=== PATIENT | female | born 1970 | race Two or more races ===

== ENCOUNTER 2024-06-18 16:11 | Emergency (ER) | payer MEDICAID ==
[~2024-06-18] VITALS: Ht 152.4 cm; Wt 66.3 kg
[2024-06-18 17:27] LABS: Urine Bacteria None Seen /hpf (None Seen)
[2024-06-18 18:45] LABS: Basophils # (auto) 0.1 10 ^3/uL (0-0.2); Basophils % (auto) 0.8 % (0.0-2.0); Eosinophils # (auto) 0.1 10 ^3/uL (0-0.8); Eosinophils % (auto) 0.8 % (0.0-7.0); Hematocrit 44.1 % (36.0-46.0); Hemoglobin 15.5 g/dL (12.2-16.2); Lymphocytes # (auto) 1.7 10 ^3/uL (0.4-5.4); Lymphocytes % (auto) 19.9 % (10.0-50.0); Mean Corpuscular Hemoglobin 31.9 pg (28.0-32.0); Mean Corpuscular Hgb Conc. 35.2 g/dL (32.0-36.0); Mean Corpuscular Volume 90.8 fL (80.0-100.0); Monocytes # (auto) 0.5 10 ^3/uL (0-1.3); Monocytes % (auto) 5.8 % (0.0-12.0); Neutrophils # (auto) 6.2 10 ^3/uL (1.6-8.6); Neutrophils % (auto) 72.7 % (37.0-80.0); Platelet Count (auto) 218 10^3/uL (140-450); Red Blood Cells 4.86 10^6/uL (4.0-5.20); Red Cell Distribution Width 13.5 % (11.8-14.3); White Blood Cell 8.5 10^3/uL (4.4-10.8)
[2024-06-18 18:51] LABS: Chloride 108 mmol/L (98-107); Potassium 4.1 mmol/L (3.5-5.1); Sodium 142 mmol/L (136-145)
[2024-06-18 18:52] LABS: Anion Gap 7 (5-15); Carbon Dioxide 27 mmol/L (20-31)
[2024-06-18 18:53] LABS: Calcium 10.3 mg/dL (8.7-10.4)
[2024-06-18 18:58] LABS: BUN/Creatinine Ratio 13.9 (10.0-20.0); Blood Urea Nitrogen 10 mg/dL (9-23); Glucose 88 mg/dL (74-106)
[2024-06-18 18:59] LABS: Urine Blood Negative /uL (Negative); Urine Clarity Clear (Clear); Urine Color Light-Yellow (Yellow); Urine Mucus FEW (None Seen); Urine Protein, UAD Negative (Negative); Urine Specific Gravity 1.021 (1.001-1.035); Urine Urobilinogen Normal (Negative); Urine WBC 1 /hpf (0 - 5); Urine pH 5.5 (5.0-9.0)
[2024-06-18 20:08] VITALS: BP 167/93; PULSE 83; RESP 18; TEMP 98.5; O2SAT 97
== END 2024-06-18 20:11 | disposition home or self-care (01) ==
LOC: ER 16:11
DX: B34.9 Viral infection, unspecified (principal); I10 Essential (primary) hypertension; E78.5 Hyperlipidemia, unspecified; Z86.2 Personal history of diseases of the blood and blood-forming organs and certain disorders involving the immune mechanism; Z90.89 Acquired absence of other organs
CPT/HCPCS: 36415; 70450; 80048; 81001; 85025; 93005

== ENCOUNTER 2024-12-02 13:46 | Inpatient (IN) | payer MEDICAID ==
[~2024-12-02] VITALS: Ht 152.4 cm; Wt 72.5 kg
[2024-12-02 14:15] VITALS: PULSE 70; RESP 13; O2SAT 98
--- NOTE | 2024-12-02 14:29 | DVH ---
X-ray left tibia and fibula Technique: AP and lateral views REASON FOR EXAM: fall FINDINGS: Spiral fracture of the distal fibula. Question chip fracture medial malleolus IMPRESSION: 1. Spiral fracture distal fibula. Question chip fracture medial malleolus
--- NOTE | 2024-12-02 14:33 | DVH ---
CLINICAL INDICATION: fall TECHNIQUE: 3 views of the left ankle Comparison: None FINDINGS/IMPRESSION: Mildly displaced oblique fracture of the lateral malleolus. Mild adjacent soft tissue swelling. Small osseous density is noted along the medial malleolus, could represent age indeterminate avulsion fracture, favor chronic.
--- NOTE | 2024-12-02 14:45 | ED.PDOC ---
History of Present Illness HPI Comments 54-year-old female with PMHx Anemia, HTN, HLD presents with a chief complaint of fall x 1 hour ago. Patient states that she had a mechanical fall x 1 hour ago and injured the distal portion of her left tib/fib. Patient is not able to ambulate on the leg and rates her pain a 10/10 at this time. PSHx Tonsillectomy, Right Ankle Repair. Patient denies smoking tobacco or illicit drug use, but does endorse alcohol use. No other symptoms or modifying factors present at this time. 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 all INSTRUCTIONAL TECHNOLOGY COACH Hx Family History Family History: Reviewed,noncontributory to illness, Unknown Social History Smoker: Non-Smoker Alcohol: Rarely Drugs: Denies Drug Use Lives In: Home Constitutional: denies: chills, diaphoresis, fatigue, fever, malaise, sweats, weakness, others EENTM: denies: blurred vision, double vision, ear bleeding, ear discharge, ear drainage, ear pain, ear ringing, eye pain, eye redness, hearing loss, mouth pain, mouth swelling, nasal discharge, nose bleeding, nose congestion, nose pain, photophobia, tearing, throat pain, throat swelling, voice changes, others Respiratory: denies: cough, hemoptysis, orthopnea, SOB at rest, shortness of breath, SOB with excertion, stridor, wheezing, others Cardiovascular: denies: chest pain, dizzy spells, diaphoresis, Dyspnea on exertion, edema, irregular heart beat, left arm pain, lightheadedness, pa lpitations, PND, syncope, others Gastrointestinal: denies: abdomen distended, abdominal pain, blood streaked bowels, constipated, diarrhea, dysphagia, difficulty swallowing, hematemesis, melena, nausea, poor appetite, poor fluid intake, rectal bleeding, rectal pain, vomiting, others Genitourinary: denies: abnormal vagina bleeding, burning, dyspareunia, dysuria, flank pain, frequency, hematuria, incontinence, pain, , vagina discharge, urgency, others Neurological: denies: dizziness, fainting, headache, left sided numbness, left sided weakness, numbness, paresthesia, pre-existing deficit, right sided numbness, right sided weakness, seizure, speech problems, tingling, tremors, weakness, others Musculoskeletal: reports: joint pain, muscle pain; denies: back pain, gout, joint swelling, muscle stiffness, neck pain, others Integumetry: denies: bruises, change in color, change in hair/nails, dryness, laceration, lesions, lumps, rash, wounds, others Allergic/Immunocompromised: denies: Difficulty Healing, Frequent Infections, Hives, Itching, others Hematologic/Lymphatic: denies: anemia, blood clots, easy bleeding, easy bruising, swollen glands, others Endocrine: denies: excessive hunger, excessive sweating, excessive thirst, excessive urination, flushing, intolerance to cold, intolerance to heat, un explained weight gain, unexplained weight loss, others Psychiatric: denies: anxiety, bipolar disorder, depression, hopeless, panic disorder, schizophrenia, sleepless, suicidal, others All Other Systems: Reviewed and Negative Physical Exam General Appearance: No Apparent Distress HEENT: Normal ENT Inspection, Pharynx Normal, TMs Normal Neck: Full Range of Motion, Non-Tender, Normal, Normal Inspection Respiratory: Chest Non-Tender, Lungs Clear, No Accessory Muscle Use, No Respiratory Distress, Normal Breath Sounds Cardiovascular: No Edema, No JVD, No Murmur, No Gallop, Normal Peripheral Pulses, Regular Rate/Rhythm Breast Exam: Deferred Gastrointestinal: No Organomegaly, Non Tender, No Pulsatile Mass, Normal Bowel Sounds, Soft Genitalia: Deferred Pelvic: Deferred Rectal: Deferred Extremities: No calf tenderness, Normal capillary refill, No pedal edema Musculoskeletal : Location: Left Extremity Location: Fibia, Leg, Tibia Apperance: Limited ROM, Tenderness: Moderate Neurologic: Alert, sand tester II-XII nml as Tested, No Motor Deficits, Normal Affect, Normal Mood, No Sensory Deficits Cerebellar Function: Normal Reflexes: Normal Skin: Dry, Normal Color, Warm Lymphatic: No Adenopathy Was a procedure done? Was a procedure done?: No Differential Dx Considerations may include: Fracture, strain, contusion X-Ray, Labs, Meds, VS Vital Signs Date Time Temp Pulse Resp B/P (MAP) Pulse Ox O2 Delivery O2 Flow Rate FiO2 12/02/24 13:59 98.2 82 18 138/84 (102) 98 98.2 Left Tib/Fib X-Ray Impression: Spiral fracture distal fibula. Question chip fracture medial malleolus Left Ankle X-Ray Impression: Mildly displaced oblique fracture of the lateral malleolus. Mild adjacent soft tissue swelling. Small osseous density is noted along the medial malleolus, could represent age indeterminate avulsion fracture, favor chronic. The patient was being placed in a posterior and stirrup splint At this time, the patient was being discharged and will follow up with the primary care doctor The patient will return to the emergency department's condition worsens. The patient was given [place] for the pain The patient understands and agrees with the management The patient was given crutches and gait training Images Reviewed?: Images reviewed and evaluated by me Time of 1ST Reevaluation: 15:12 Reevaluation 1ST: Unchanged Patient Education/Counseling: Diagnosis, Treatment, Prognosis, Need For Follow Up Family Education/Counseling: No Family Present Departure 1 Departure Time of Disposition: 15:05 Impression: Primary Impression: Left fibular fracture Qualified Codes: S82.445A - Nondisplaced spiral fracture of shaft of left fibula, initial encounter for closed fracture Additional Impression: Closed left ankle fracture Qualified Codes: S82.892A - Other fracture of left lower leg, initial encounter for closed fracture Disposition: 01 HOME / SELF CARE / HOMELESS Condition: Fair Discharged With: Self, Friend Critical Care Note Critical Care Time?: No Stability Stability form required: No Heart Score Heart Score: Heart Score Response (Comments) Value History N/A 0 EKG N/A 0 Age N/A 0 Risk Factors N/A 0 Troponin N/A 0 Total 0 I personally scribed for TALON LARA MD ([email or web address]) on 12/02/24 at 14:45. Electronically submitted by Justin Ugarte ([email or web address]). I personally scribed for TALON LARA MD ([email or web address]) on 12/02/24 at 14:47. Electronically submitted by Justin Ugarte ([email or web address]). TALON LARA MD Dec 02, 2024 14:45
[2024-12-02] MEDS ORDERED: HYDR-4902 PO (15:07)
[2024-12-02] MEDS: HYDROcodone-ACET 10/325MG TAB PO ONE (15:18)
[2024-12-02 16:14] LABS: Basophils # (auto) 0.1 10 ^3/uL (0-0.2); Eosinophils # (auto) 0.2 10 ^3/uL (0-0.8); Eosinophils % (auto) 2.2 % (0.0-7.0); Hematocrit 46.5 % (36.0-46.0); Hemoglobin 15.7 g/dL (12.2-16.2); Lymphocytes # (auto) 2.1 10 ^3/uL (0.4-5.4); Lymphocytes % (auto) 25.5 % (10.0-50.0); Mean Corpuscular Hemoglobin 30.9 pg (28.0-32.0); Mean Corpuscular Hgb Conc. 33.7 g/dL (32.0-36.0); Mean Corpuscular Volume 91.6 fL (80.0-100.0); Monocytes # (auto) 0.5 10 ^3/uL (0-1.3); Monocytes % (auto) 5.7 % (0.0-12.0); Neutrophils # (auto) 5.3 10 ^3/uL (1.6-8.6); Neutrophils % (auto) 65.6 % (37.0-80.0); Nucleated Red Blood Cells % 0.1 %; Platelet Count (auto) 217 10^3/uL (140-450); Red Blood Cells 5.08 10^6/uL (4.0-5.20); Red Cell Distribution Width 13.1 % (11.8-14.3); White Blood Cell 8.1 10^3/uL (4.4-10.8)
[2024-12-02 16:21] LABS: Chloride 106 mmol/L (98-107); Potassium 4.1 mmol/L (3.5-5.1); Sodium 143 mmol/L (136-145)
[2024-12-02 16:22] LABS: Anion Gap 9 (5-15); Calcium 10.2 mg/dL (8.7-10.4); Carbon Dioxide 28 mmol/L (20-31)
[2024-12-02 16:27] LABS: BUN/Creatinine Ratio 16.5 (10.0-20.0); Blood Urea Nitrogen 13 mg/dL (9-23); Glucose 100 mg/dL (74-106)
[2024-12-02 16:34] LABS: INR 0.97 (0.9-1.15); Partial Thromboplastin Time 25.8 SEC (24.5-34.5); Prothrombin Time 10.3 sec (9.3-11.8)
[2024-12-02] MEDS ORDERED: MORPHINE SULFATE INJ 2 MG/ml SYRG IV PRN (19:00)
[2024-12-02] MEDS ORDERED: ONDANSETRON HCL 4 MG/2 ML VIAL IV PRN (19:00)
[2024-12-02 19:46] VITALS: PULSE 72; RESP 16; O2SAT 97
[2024-12-02 21:00] VITALS: BP 143/74; PULSE 67; RESP 18; TEMP 98.1; O2SAT 97
--- NOTE | 2024-12-02 21:24 | DVHHP2 ---
History of Present Illness Reason for Visit: Left ankle pain History of Present Illness 54-year-old female presents for evaluation of left ankle pain. Patient reports stepping into a ole on the ground. She reports twisting her left ankle can not bear weight left leg. Denies trauma loss of consciousness. Acute complaints reported. Past Medical History Hypertension, dyslipidemia Past Surgical History Tonsillectomy Family History Noncontributory Smoke: No ALCOHOL: none Drugs: None Lives: with Family Review of Systems Review of Systems Review of systems are currently negative otherwise addressed in HPI. Allergies: Coded Allergies: NO KNOWN ALLERGIES (Unverified , 06/18/24) Medications Current Medications Medications Dose Ordered Sig/Lucille Route Start Time Stop Time Status Last Admin Dose Admin Acetaminophen/ Hydrocodone Bitart 1 tab Q4HP PRN PO 12/02/24 19:00 Ondansetron HCl 4 mg Q4HP PRN IV 12/02/24 19:00 Acetaminophen 650 mg Q6HP PRN PO 12/02/24 19:00 Morphine Sulfate 2 mg Q4HPRN PRN IV 12/02/24 19:00 Exam Vital Signs Vital Signs Date Time Temp Pulse Resp B/P (MAP) Pulse Ox O2 Delivery O2 Flow Rate FiO2 12/02/24 20:01 98.1 72 16 130/74 (92) 97 98.1 12/02/24 19:46 Room Air* 0 21 Exam Gen: 54-year-old female in mild distress. Skin: Warm, dry, normal color and texture, no rash. HEENT: Normocephalic atraumatic, mucous membranes moist and pink. Neck: Cervical and supraclavicular nodes normal without enlargement, trachea is midline, thyroid gland is normal without masses. Pulmonary: Clear to auscultation and percussion bilaterally. Cardiac: Regular rate and rhythm. No murmur Abdomen: Soft, nontender, nondistended, bowel sounds present all 4 quadrants, no guarding, no rigidity, no organomegaly. Extremities: No cyanosis, clubbing, left lower extremity on a splint with positive distal pulses Neuro: Cranial nerves II through XII grossly intact, normal affect and speech, no focal motor deficits. Labs/Xrays CLINICAL INDICATION: fall TECHNIQUE: 3 views of the left ankle Comparison: None FINDINGS/IMPRESSION: Mildly displaced oblique fracture of the lateral malleolus. Mild adjacent soft tissue swelling. Small osseous density is noted along the medial malleolus, could represent age indeterminate avulsion fracture, favor chronic. RING PHYSICIAN: TALON LARA MD PROCEDURE(s): LTBFB - L TIB FIB XRAY REASON: fall ORDER NUMBER(s): [id number], ACCESSION NUMBER(s): [id number] X-ray left tibia and fibula Technique: AP and lateral views REASON FOR EXAM: fall FINDINGS: Spiral fracture of the distal fibula. Question chip fracture medial malleolus IMPRESSION: 1. Spiral fracture distal fibula. Question chip fracture medial malleolus Labs Test 12/02/24 16:08 Range/Units White Blood Count 8.1 4.4-10.8 10^3/uL Red Blood Count 5.08 4.0-5.20 10^6/uL Hemoglobin 15.7 12.2-16.2 g/dL Hematocrit 46.5 H 36.0-46.0 % Mean Corpuscular Volume 91.6 80.0-100.0 fL Mean Corpuscular Hemoglobin 30.9 28.0-32.0 pg Mean Corpuscular Hemoglobin Concent 33.7 32.0-36.0 g/dL Red Cell Distribution Width 13.1 11.8-14.3 % Platelet Count 217 140-450 10^3/uL Mean Platelet Volume 9.7 6.9-10.8 fL Neutrophils (%) (Auto) 65.6 37.0-80.0 % Lymphocytes (%) (Auto) 25.5 10.0-50.0 % Monocytes (%) (Auto) 5.7 0.0-12.0 % Eosinophils (%) (Auto) 2.2 0.0-7.0 % Basophils (%) (Auto) 1.0 0.0-2.0 % Neutrophils # (Auto) 5.3 1.6-8.6 10 ^3/uL Lymphocytes # (Auto) 2.1 0.4-5.4 10 ^3/uL Monocytes # (Auto) 0.5 0-1.3 10 ^3/uL Eosinophils # (Auto) 0.2 0-0.8 10 ^3/uL Basophils # (Auto) 0.1 0-0.2 10 ^3/uL Nucleated Red Blood Cells 0.1 % Prothrombin Time 10.3 9.3-11.8 sec Prothrombin Time INR 0.97 0.9-1.15 Activated Partial Thromboplast Time 25.8 24.5-34.5 SEC Sodium Level 143 136-145 mmol/L Potassium Level 4.1 3.5-5.1 mmol/L Chloride Level 106 98-107 mmol/L Carbon Dioxide Level 28 20-31 mmol/L Anion Gap 9 5-15 Blood Urea Nitrogen 13 9-23 mg/dL Creatinine 0.79 0.550-1.02 mg/dL Glomerular Filtration Rate Calc 88 >90 mL/min BUN/Creatinine Ratio 16.5 10.0-20.0 Serum Glucose 100 74-106 mg/dL Calcium Level 10.2 8.7-10.4 mg/dL Assessment/Plan Assessment/Plan Assessment Closed left ankle fracture Left fibular fracture Hypertension Plan Admit the patient to [facility] to the hospitalist Orthopedic consultation Pain management NPO after midnight Continue treatment per orders. Plan discussed with: Patient My Orders Orders - DOLORES JONES Procedure Category Date Status Time *Consult Dr. Goldsmith CONS 12/02/24 Transmitted Elliott 18:59 Npo After Midnight ORDERS 12/02/24 Transmitted Admit ADMIT 12/02/24 Transmitted 18:59 Hydrocodone-Acet PHA 12/02/24 In Process 5/325mg Tab ([place] 19:00 Ondansetron Hcl PHA 12/02/24 In Process (Zofran) 19:00 Condition: Stable ISABELL 12/02/24 In Process 18:59 Acetaminophen Tablet PHA 12/02/24 In Process (Tylenol Tablet) 19:00 Bedrest With Bathroom ISABELL 12/02/24 In Process Privileg 18:59 Morphine Sulfate PHA 12/02/24 In Process Injection 19:00 Basic Metabolic Panel LAB 12/03/24 Verified 04:00 Date of Service: Dec 02, 2024 Billing Provider: DOLORES JONES Common Visit Codes: [id number] INP/OBS CARE (MOD) DOLORES JONES Dec 02, 2024 21:24
[2024-12-02 21:25] VITALS: O2SAT 97
[2024-12-02 21:44] VITALS: BP 143/74; PULSE 67; RESP 16; TEMP 98.1; O2SAT 97
[2024-12-02] MEDS: HYDROcodone-ACET 5/325MG TAB PO PRN (22:56)
[2024-12-03 05:00] VITALS: BP 110/78; PULSE 67; RESP 18; TEMP 98; O2SAT 99
[2024-12-03 05:47] LABS: Chloride 106 mmol/L (98-107); Potassium 4.1 mmol/L (3.5-5.1); Sodium 142 mmol/L (136-145)
[2024-12-03 05:48] LABS: Anion Gap 8 (5-15); Carbon Dioxide 28 mmol/L (20-31)
[2024-12-03 05:49] LABS: Calcium 9.3 mg/dL (8.7-10.4)
[2024-12-03 05:53] LABS: BUN/Creatinine Ratio 18.4 (10.0-20.0); Blood Urea Nitrogen 14 mg/dL (9-23); Glucose 88 mg/dL (74-106)
[2024-12-03 09:00] VITALS: BP 129/77; PULSE 69; RESP 18; TEMP 98.1; O2SAT 97
--- NOTE | 2024-12-03 09:56 | DVH ---
PROCEDURE: Left ankle radiographs. INDICATION: surgical evaluation/Mortise View TECHNIQUE: Frontal, lateral and oblique views of the left ankle were obtained. COMPARISON: None FINDINGS: There is interval casting of distal fibular fracture. Medial ankle clear space measures 4 mm similar to prior study. There is a heel spur. IMPRESSION: 1. Interval casting of distal fibular fracture. No significant change in alignment.
--- NOTE | 2024-12-03 11:10 | DVHINCON2 ---
Consult Note Consult Consult Note Chief complaint: Left ankle pain and instability to ambulate following ground level fall. History of present illness: This is a 54-year-old female admitted after a ground level fall proximally 1 day ago, resulting in left ankle injury. Emergency department imaging revealed a Lanier B/C fibular fracture spiral with medial clear space widening and concern for syndesmotic and/or deltoid ligament injury patient is normally highly a ctive, ambulates independently, and desires promptly returned to full functioning. She denies tobacco use cardiac history pulmonary or other histories today. She denies any other joint pain, loss of consciousness vision changes. She also denies calf pain swelling of cast numbness tingling lower extremity or other concern. Review of system: Constitutional call denies fever, chills, weight loss. Cardiovascular: Denies chest pain, palpitation. Respiratory: Denies shortness of breath, cough. GI: Denies nausea, vomiting, diarrhea. : Denies dysuria, incontinence. Neuro: Denies numbness tingling or weakness lower extremity. MSK left ankle pain, no other joint pain reported. Skin: No rash wounds elsewhere. Guille psych: Denies depression or anxiety. Physical exam: General: Alert, oriented x3, no distress. Left lower extremity ankle/foot: Inspection: Moderate swelling, lateral and medial ecchymosis, no open wounds. Palpitation: TTP at lateral male and medial ankle/deltoid region. Range of motion: Severely limited due to pain; unable to actively dorsiflex/plantar flex. Stability: External rotation tenderness painful over Neurovascular: Sensation intact in all distributions superficial/deep peroneal, tibial, sural. Motor 5/5 where testable limited by pain. DP/PT pulses 2+, IRRIGATION TEACHER less than 2 sec Compartments: Soft, no sign of ACS Imaging: X-ray spiral fracture Lanier B/C distal fibula, mild medial clear space widening. Possible syndesmotic injury Assessment/plan: Left ankle bimalleolar equivalent fracture (Lanier B/C (close with possible sy ndesmotic and deltoid ligament disruption suspected: Unstable pattern; operative fixation required About exam x-ray case discussed with on-call surgeon Dr. Manzo who agrees with the above recommends surgical fixation Plan of open reduction internal fixation with possible syndesmotic fixation discussed in detail with patient, nonoperative treatment plan also discussed in detail with patient pros and cons of both discussed with patient. Patient at this time would like surgical fixation. Recommendation to medicine team: NPO at midnight Obtain consent Preop clearance and optimization for surgery in next 24 hour for this. Strict nonweightbearing status for lower left extremity until further notice. Patient highly motivated bed agreeable to surgical treatment as discussed above E/ M code: 70515 high complexity. Plan discussed with: Patient, Other (bedside nurse) Visit Coding Surgery Date of Service if different f: Dec 03, 2024 Billing Provider: STACY ALMENDAREZ Surgery Visit Codes: 61136 - INP CONSULT <55 MIN STACY ALMENDAREZ Dec 03, 2024 11:10
[2024-12-03 13:00] VITALS: BP 126/73; PULSE 73; RESP 18; TEMP 97.9; O2SAT 98
--- NOTE | 2024-12-03 13:04 | DVHPN2 ---
Progress Note Date Seen: Dec 03, 2024 Medical Necessity Reason Pt with a Central, PICC or Fol: No Subjective Patient reports: No new complaints Review of Systems: HEENT:Normal, CVS:Normal, RESPIRATORY:Normal, GI:Normal, :Normal, MSK:Normal, NEURO:Normal Objective vital signs Vital Sign Date Time Temp Pulse Resp B/P (MAP) Pulse Ox O2 Delivery O2 Flow Rate FiO2 12/03/24 09:00 98.1 69 18 129/77 (94) 97 98.1 12/03/24 08:05 Room Air* 0 21 medications Current Medications Medications Dose Ordered Sig/Lucille Route Start Time Stop Time Status Last Admin Dose Admin Acetaminophen/ Hydrocodone Bitart 1 tab Q4HP PRN PO 12/02/24 19:00 12/02/24 22:56 1 TAB Ondansetron HCl 4 mg Q4HP PRN IV 12/02/24 19:00 Acetaminophen 650 mg Q6HP PRN PO 12/02/24 19:00 Morphine Sulfate 2 mg Q4HPRN PRN IV 12/02/24 19:00 Examination: GENERAL:Normal, HEENT:Normal, NECK:Normal, LUNGS:Normal, CVS:Normal, ABDOMEN:Normal, MSK:Normal, MSK:Abnormal (left ankle cast), SKIN:Normal, NEURO:Normal, :Normal laboratory and microbiology Laboratory Tests 12/03/24 04:43 12/02/24 16:08 Test 12/03/24 04:43 Range/Units Serum Glucose 88 74-106 mg/dL Problem List/Assessment/Plan Problem List/Assessment/Plan #1 left ankle fracture: surg in am #2 ?htn #3 homeless advance care planning- full code- time spent 19 mins Plan discussed with: Patient My Orders My Orders Orders - DOLORES MOORE MD Procedure Category Date Status Time * Timber Packer CONS 12/03/24 Transmitted Consult Urinalysis LAB 12/03/24 Uncollected 13:02 Complete Blood Count LAB 12/04/24 Verified 06:00 Comprehensive LAB 12/04/24 Verified Metabolic Panel 06:00 Date of Service: Dec 03, 2024 Billing Provider: DOLORES MOORE MD Common Visit Codes: [id number] INP/OBS CARE(HIGH) Secondary Visit Codes: [id number]-[id number] CARE PLAN 30 MINUTES DOLORES MOORE MD Dec 03, 2024 13:04
--- NOTE | 2024-12-03 15:28 | DVH ---
EXAM: XY CHEST XRAY 1 VIEW TECHNIQUE: Single frontal chest radiograph CLINICAL HISTORY: surgical evaluation COMPARISON: None Findings/Impression: Frontal chest radiograph demonstrates no acute osseous or superficial soft tissue abnormalities. The trachea is midline. The cardiac silhouette and mediastinum are within normal limits. No pneumothorax, pleural effusions, or consolidations.
[2024-12-03 17:00] VITALS: BP 124/74; PULSE 77; RESP 16; TEMP 98.2; O2SAT 97
[2024-12-03 21:00] VITALS: BP 116/65; PULSE 78; RESP 18; TEMP 98.3; O2SAT 96
[2024-12-03 23:00] LABS: Urine Bacteria None Seen /hpf (None Seen)
[2024-12-03 23:10] LABS: Urine Amorphous Crystal FEW /hpf (None Seen); Urine Blood Negative /uL (Negative); Urine Clarity Turbid (Clear); Urine Color Light-Yellow (Yellow); Urine Protein, UAD Negative (Negative); Urine Specific Gravity 1.019 (1.001-1.035); Urine Squamous Epithelial Cell FEW /hpf (<5); Urine Urobilinogen Normal (Negative); Urine WBC 1 /HPF (0-5)
[2024-12-04] VITALS (8 sets, daily range): BP systolic 109–133; BP diastolic 65–84; PULSE 61–105; RESP 16–20; TEMP 97.6–98.1; O2SAT 95–98
[2024-12-04 06:53] LABS: Basophils # (auto) 0 10 ^3/uL (0-0.2); Eosinophils # (auto) 0.2 10 ^3/uL (0-0.8); Eosinophils % (auto) 4.3 % (0.0-7.0); Hematocrit 42.1 % (36.0-46.0); Hemoglobin 14.2 g/dL (12.2-16.2); Lymphocytes # (auto) 1.9 10 ^3/uL (0.4-5.4); Lymphocytes % (auto) 40.9 % (10.0-50.0); Mean Corpuscular Hemoglobin 30.8 pg (28.0-32.0); Mean Corpuscular Hgb Conc. 33.7 g/dL (32.0-36.0); Mean Corpuscular Volume 91.4 fL (80.0-100.0); Monocytes # (auto) 0.3 10 ^3/uL (0-1.3); Neutrophils # (auto) 2.2 10 ^3/uL (1.6-8.6); Neutrophils % (auto) 46.8 % (37.0-80.0); Nucleated Red Blood Cells % 0.1 %; Platelet Count (auto) 176 10^3/uL (140-450); Red Cell Distribution Width 13.5 % (11.8-14.3); White Blood Cell 4.6 10^3/uL (4.4-10.8)
[2024-12-04 07:11] LABS: Alanine Aminotransferase 14 U/L (7-40); Albumin 4.1 g/dL (3.2-4.8); Alkaline Phosphatase 73 U/L (46-116); Anion Gap 7 (5-15); Aspartate Aminotransferase 15 U/L (13-40); BUN/Creatinine Ratio 18.6 (10.0-20.0); Bilirubin, Total 0.7 mg/dL (0.2-1.0); Blood Urea Nitrogen 13 mg/dL (9-23); Calcium 9.5 mg/dL (8.7-10.4); Carbon Dioxide 28 mmol/L (20-31); Chloride 106 mmol/L (98-107); Glucose 103 mg/dL (74-106); Potassium 4.2 mmol/L (3.5-5.1); Sodium 141 mmol/L (136-145); Total Protein 6.6 g/dL (5.7-8.2)
[2024-12-04] MEDS ORDERED: PROPOFOL 10 MG/ML 20 ML IV ONE (10:36)
[2024-12-04] MEDS ORDERED: LIDOCAINE 2% (LOCAL ANESTH.) PF 5ml SDV ONE (10:36)
[2024-12-04] MEDS ORDERED: LIDOCAINE 1% INJ PF 5ML AMP ONE (10:36)
[2024-12-04] MEDS ORDERED: GLYCOPYRROLATE 0.2 MG/ML 1ML VIAL ONE (10:36)
[2024-12-04] MEDS ORDERED: DexAMETHasone SOD PHOS 10MG/1ML VIAL INJ ONE (10:36)
[2024-12-04] MEDS ORDERED: ONDANSETRON HCL 4 MG/2 ML VIAL ONE (10:36)
[2024-12-04] MEDS ORDERED: KETOROLAC TROMETH 30 MG/ML 1ML VIAL ONE (10:36)
[2024-12-04] MEDS ORDERED: fentaNYL CITRATE 100 MCG/2 ML VL ONE (10:37)
[2024-12-04] MEDS ORDERED: KETAMINE 50mg/ML 1ml syringe ONE (10:37)
[2024-12-04] MEDS: GABAPENTIN 300 MG CAP PO ONE (11:30)
[2024-12-04] MEDS: CELECOXIB 100 MG CAP PO ONE (11:30)
[2024-12-04] MEDS: ACETAMINOPHEN IV 1000 MG/100ML (10MG/ML) IV ONE (11:30)
[2024-12-04] MEDS: ceFAZolin 1GM/50ML 100 ML IV ONE (11:45)
--- NOTE | 2024-12-04 11:48 | DVHPN2 ---
Progress Note Date Seen: Dec 04, 2024 Medical Necessity Reason Pt with a Central, PICC or Fol: No Subjective Patient reports: No new complaints Review of Systems: HEENT:Normal, CVS:Normal, RESPIRATORY:Normal, GI:Normal, :Normal, MSK:Normal, NEURO:Normal Objective vital signs Vital Sign Date Time Temp Pulse Resp B/P (MAP) Pulse Ox O2 Delivery O2 Flow Rate FiO2 12/04/24 09:00 97.6 67 17 133/73 (93) 98 97.6 12/04/24 08:00 Room Air* 0 21 Total Intake and Output 12/03/24 12/03/24 12/04/24 15:00 23:00 07:00 Intake Total 250 ml 0 ml Balance 250 ml 0 ml medications Current Medications Medications Dose Ordered Sig/Lucille Route Start Time Stop Time Status Last Admin Dose Admin Acetaminophen/ Hydrocodone Bitart 1 tab Q4HP PRN PO 12/02/24 19:00 12/04/24 00:20 1 TAB Ondansetron HCl 4 mg Q4HP PRN IV 12/02/24 19:00 Acetaminophen 650 mg Q6HP PRN PO 12/02/24 19:00 Morphine Sulfate 2 mg Q4HPRN PRN IV 12/02/24 19:00 Examination: GENERAL:Normal, HEENT:Normal, NECK:Normal, LUNGS:Normal, CVS:Normal, ABDOMEN:Normal, MSK:Normal, MSK:Abnormal (left ankle splint), SKIN:Normal, NEURO:Normal, :Normal laboratory and microbiology Laboratory Tests 12/04/24 06:07 Test 12/04/24 06:07 Range/Units Serum Glucose 103 74-106 mg/dL Problem List/Assessment/Plan Problem List/Assessment/Plan #1 left ankle fracture: surg today #2 ?htn #3 homeless advance care planning- full code- time spent 19 mins Plan discussed with: Other (rn) My Orders My Orders Orders - DOLORES MOORE MD Procedure Category Date Status Time * Warp Knit Operator CONS 12/03/24 Transmitted Consult Urinalysis LAB 12/03/24 Uncollected 13:02 Date of Service: Dec 04, 2024 Billing Provider: DOLORES MOORE MD Common Visit Codes: [id number] INP/OBS CARE(HIGH) DOLORES MOORE MD Dec 04, 2024 11:48
--- NOTE | 2024-12-04 11:49 | DVHHP2 ---
History Allergies: Coded Allergies: NO KNOWN ALLERGIES (Unverified , 06/18/24) Chief Complaint: left ankle pain , inabilty to bear weight Present Illness(Onset/Duration mechanical fall 12/03/23, no AMS before or after fall , no hitting head non contirbutory Past Surgical History tonsillectomy, unclear surgery right mid foot without compilcations Medications none declared Physical Exam Skin intact EENT NCAT Chest and Lungs CTA B Heart RRR neg MRG Abdomen NBS Extremities Right ankle , skin intact, moderate swelling, ROM / stabilty not assessed due to fracture Vital Signs Vital Signs Date Time Temp Pulse Resp B/P (MAP) Pulse Ox O2 Delivery O2 Flow Rate FiO2 12/04/24 09:00 97.6 67 17 133/73 (93) 98 97.6 12/04/24 08:00 Room Air* 0 21 Impressions/Description LEFT distal fibula fracture, rule out syndesmotic ligament disruption Plan NPO pre-op clearance surgery, open reduction internal fixation of right ankle lateral malleolus fracture JOSE SALDIVAR MD Dec 04, 2024 11:49
[2024-12-04] MEDS ORDERED: ePHEDrine SULFATE 50 MG/ML AMP ONE (12:07)
[2024-12-04] MEDS ORDERED: HYDROmorphone HCL 2 MG/ML VL/or syr IV PRN (13:15)
[2024-12-04] MEDS ORDERED: FLUMAZENIL 0.1 MG/ML INJ 10ML MDV IV PRN (13:15)
[2024-12-04] MEDS ORDERED: ONDANSETRON HCL 4 MG/2 ML VIAL IV PRN (13:15)
[2024-12-04] MEDS ORDERED: hydrALAZINE HCL 20 MG/ML VL IV PRN (13:15)
[2024-12-04] MEDS ORDERED: fentaNYL CITRATE 100 MCG/2 ML VL IV PRN (13:15)
[2024-12-04] MEDS ORDERED: oxyCODONE HCL 5MG TAB PO PRN (13:15)
[2024-12-04] MEDS ORDERED: ePHEDrine SULFATE 50 MG/ML AMP IV PRN (13:15)
[2024-12-04] MEDS ORDERED: NALOXONE HCL 0.4 MG/ML VIAL IV PRN (13:15)
--- NOTE | 2024-12-04 13:15 | DVHOP2 ---
Operative Report - 2 Report Details Date: 12/04/24 Preop Diagnosis: lateral malleolus fracture, deltoid ligament tear, rule out syndesmosis injury Postop Diagnosis: same , with no instability of syn Surgeon: Guille Saldivar MD Emotional Support Teacher: Anderson Anesthesiologist: Dr Reynolds Anesthesia: General Drains: none Implant: lateral fibular plate Consent: The patient was informed of the risks and benefits of the procedure. These include but are not limited to complications of anesthesia, postoperative infection, incomplete relief of symptoms, recurrence of symptoms, damage to blood vessels, nerves and tendons, deep venous thrombosis, pulmonary embolism and possible need for repeat surgery in the future. Complications: none Estimated Blood Loss: 25cc Fluids: 750 cc crystalloid Findings: spiral fracture lateral malleolus intact syndesmosis Indications for Surgery: lateral malleolus fracture with medial ankle pain a questionable widening of medial mortise Name of Procedure Performed Open reduction internal fixation of left ankle lateral malleolus fracture Procedure Details Procedure Details: Patient brought in the operating room given Ancef 2 g IV piggyback preoperatively transferred to fracture table seatbelt nonsterile tourniquet left thigh sterile prep and drape left lower extremity time-out performed comprehension left side correct side ORIF of lateral malleolus and possible disc syndesmosis fixation after review of operative consent his history and physical and my initials on left leg all long-term operating room agreeing the left side correct side ORIF of lateral malleolus fracture and possible placement of syndesmosis fixation correct procedure exsanguination with Esmarch tourniquet elevated to 250 mm Hg total tourniquet time 30 minutes longitudinal incision made over the lateral malleolus from tip of lateral malleolus proximally for a length of 10 cm sharp dissection through skin down to subcutaneous tissue blunt dissection down to deep fascia deep fascia divided subperiosteal elevation of bone exposing spiral oblique fracture lateral malleolus irrigation to remove hematoma crab claw clamp to reduce fracture of compression screw placed across fracture over drilling proximal aspect to create compression the placement of a lateral fibular plate with three cortical screws three distal cancellous screws C-arm fluoro taken AP and lateral and mortise views showing good overall alignment of fracture and placement of hardware traction then placed on the lateral fibula with crab claw under fluoro guidance showing no evidence of instability of syndesmosis no widening of mortise therefore no need for syndesmotic fixation irrigation performed excellent hemostasis noted after tourniquet let down closure subcutaneous 2-0 Vicryl skin amanda fluffs ABD Coban walker boot two nonweightbearing four weeks. Specimen: none Condition Stable Disposition Home GUILLE SALDIVAR MD Dec 04, 2024 13:15
[2024-12-04] MEDS: D5W/SOD CHL 0.45%/KCL 20MEQ 1,000 ML IV SCH (14:36)
--- NOTE | 2024-12-04 16:29 | ECG ---
[facility] Test Date: 2024-12-03 Test Time: 16:04:16 Pat Name: LAUREN ROMEO Department: Room: 0286 B Gender: F Registered Radiologic Technologist: PRASHANT : 1970 Requested By: STACY ALMENDAREZ Order Number: [id number] Reading MD: Hemanth Marley Measurements Intervals [place] Rate: 71 P: 55 DE: 147 QRS: 55 QRSD: 97 T: 26 QT: 375 QTc: 408 Interpretive Statements Sinus rhythm Probable anterior infarct, age indeterminate Electronically Signed On 12-06-2024 12:58:17 PDT by Hemanth Marley Please click the below link to view image of tracing.
--- NOTE | 2024-12-04 16:39 | DVH ---
EXAM: XY L ANKLE 3 VIEW, XY C ARM FLUOROSCOPY UP TO 60MIN HISTORY: ORIF LEFT ANKLE TECHNIQUE: Intraoperative radiographs of the left ankle were obtained. FLUOROSCOPY TIME: 8.9 seconds FLUOROSCOPY IMAGES: 6 TOTAL DOSE: 0.13 mGy COMPARISON: XY L ANKLE 3 VIEW on DOS: 12/03/24 FINDINGS/IMPRESSION: Refer to intraoperative report for further evaluation.
[2024-12-04] MEDS: ACETAMINOPHEN 325 MG TAB PO PRN (22:07)
[2024-12-05 01:00] VITALS: BP 125/71; PULSE 101; RESP 18; TEMP 97.5; O2SAT 96
[2024-12-05 05:00] VITALS: BP 126/83; PULSE 69; RESP 19; TEMP 96.1; O2SAT 94
[2024-12-05 06:16] LABS: Basophils # (auto) 0 10 ^3/uL (0-0.2); Basophils % (auto) 0.3 % (0.0-2.0); Eosinophils # (auto) 0 10 ^3/uL (0-0.8); Hematocrit 39.4 % (36.0-46.0); Hemoglobin 13.6 g/dL (12.2-16.2); Lymphocytes # (auto) 0.8 10 ^3/uL (0.4-5.4); Lymphocytes % (auto) 6.1 % (10.0-50.0); Mean Corpuscular Hemoglobin 31.7 pg (28.0-32.0); Mean Corpuscular Hgb Conc. 34.4 g/dL (32.0-36.0); Mean Corpuscular Volume 92.2 fL (80.0-100.0); Monocytes # (auto) 0.5 10 ^3/uL (0-1.3); Monocytes % (auto) 3.8 % (0.0-12.0); Neutrophils # (auto) 11.4 10 ^3/uL (1.6-8.6); Neutrophils % (auto) 89.8 % (37.0-80.0); Platelet Count (auto) 181 10^3/uL (140-450); Red Blood Cells 4.27 10^6/uL (4.0-5.20); Red Cell Distribution Width 13.6 % (11.8-14.3); White Blood Cell 12.7 10^3/uL (4.4-10.8)
[2024-12-05] MEDS ORDERED: HYDR-4902 PO (08:02)
[2024-12-05] MEDS ORDERED: CEPH500C PO (08:03)
[2024-12-05 08:31] VITALS: BP 128/70; PULSE 85; RESP 19; TEMP 98.4; O2SAT 97
--- NOTE | 2024-12-05 11:49 | DVHPN2 ---
Progress Note Date Seen: Dec 05, 2024 Medical Necessity Reason Pt with a Central, PICC or Fol: No Subjective Patient reports: No new complaints Review of Systems: HEENT:Normal, CVS:Normal, RESPIRATORY:Normal, GI:Normal, :Normal, MSK:Normal, NEURO:Normal Objective vital signs Vital Sign Date Time Temp Pulse Resp B/P (MAP) Pulse Ox O2 Delivery O2 Flow Rate FiO2 12/05/24 10:31 98.4 12/05/24 08:31 85 19 128/70 (89) 97 12/05/24 08:10 Room Air* 0 21 Total Intake and Output 12/04/24 12/04/24 12/05/24 15:00 23:00 07:00 Intake Total 200 ml 1000 ml 2200 ml Balance 200 ml 1000 ml 2200 ml medications Current Medications Medications Dose Ordered Sig/Lucille Route Start Time Stop Time Status Last Admin Dose Admin Acetaminophen/ Hydrocodone Bitart 1 tab Q4HP PRN PO 12/02/24 19:00 12/04/24 00:20 1 TAB Ondansetron HCl 4 mg Q4HP PRN IV 12/02/24 19:00 Acetaminophen 650 mg Q6HP PRN PO 12/02/24 19:00 12/05/24 09:31 650 MG Morphine Sulfate 2 mg Q4HPRN PRN IV 12/02/24 19:00 Potassium Chloride/Dextrose/ Sod Cl 1,000 ml @ 150 mls/hr Q6H40M IV 12/04/24 13:30 12/05/24 09:31 150 MLS/HR Examination: GENERAL:Normal, HEENT:Normal, NECK:Normal, LUNGS:Normal, CVS:Normal, ABDOMEN:Normal, MSK:Normal, MSK:Abnormal (left ankle boot), SKIN:Normal, NEURO:Normal, :Normal laboratory and microbiology Laboratory Tests 12/05/24 04:24 12/04/24 06:07 Test 12/04/24 06:07 Range/Units Serum Glucose 103 74-106 mg/dL Problem List/Assessment/Plan Problem List/Assessment/Plan #1 left ankle fracture: s/p surgery #2 ?htn #3 homeless advance care planning- full code- time spent 19 mins Plan discussed with: Patient My Orders My Orders Orders - DOLORES MOORE MD Procedure Category Date Status Time C Arm Fluoroscopy Up XY 12/04/24 Resulted To 60min 16:11 L Ankle 3 View XY 12/04/24 Resulted 16:12 Pt Request For Service PT 12/05/24 Verified 11:48 Date of Service: Dec 05, 2024 Billing Provider: DOLORES MOORE MD Common Visit Codes: [id number] INP/OBS CARE(HIGH) DOLORES MOORE MD Dec 05, 2024 11:49
[2024-12-05 13:28] VITALS: BP 133/89; PULSE 78; RESP 21; TEMP 98.6; O2SAT 96
[2024-12-05 17:00] VITALS: BP 120/62; PULSE 75; RESP 19; TEMP 98; O2SAT 95
[2024-12-05 21:00] VITALS: BP 116/68; PULSE 81; RESP 18; TEMP 97.9; O2SAT 95
[2024-12-06] VITALS (7 sets, daily range): BP systolic 10–146; BP diastolic 52–83; PULSE 55–75; RESP 17–21; TEMP 97.6–98.4; O2SAT 95–100
--- NOTE | 2024-12-06 11:51 | DVHDS2 ---
Discharge Summary Date of Admission Dec 02, 2024 at 18:59 Date of Discharge: Dec 06, 2024 Labs/Diagnostic Data: Laboratory Results Test 12/05/24 04:24 12/04/24 06:07 12/03/24 23:00 12/02/24 16:08 White Blood Count 12.7 10^3/uL (4.4-10.8) Red Blood Count 4.27 10^6/uL (4.0-5.20) Hemoglobin 13.6 g/dL (12.2-16.2) Hematocrit 39.4 % (36.0-46.0) Mean Corpuscular Volume 92.2 fL (80.0-100.0) Mean Corpuscular Hemoglobin 31.7 pg (28.0-32.0) Mean Corpuscular Hemoglobin Concent 34.4 g/dL (32.0-36.0) Red Cell Distribution Width 13.6 % (11.8-14.3) Platelet Count 181 10^3/uL (140-450) Mean Platelet Volume 11.0 fL (6.9-10.8) Neutrophils (%) (Auto) 89.8 % (37.0-80.0) Lymphocytes (%) (Auto) 6.1 % (10.0-50.0) Monocytes (%) (Auto) 3.8 % (0.0-12.0) Eosinophils (%) (Auto) 0.0 % (0.0-7.0) Basophils (%) (Auto) 0.3 % (0.0-2.0) Neutrophils # (Auto) 11.4 10 ^3/uL (1.6-8.6) Lymphocytes # (Auto) 0.8 10 ^3/uL (0.4-5.4) Monocytes # (Auto) 0.5 10 ^3/uL (0-1.3) Eosinophils # (Auto) 0 10 ^3/uL (0-0.8) Basophils # (Auto) 0 10 ^3/uL (0-0.2) Nucleated Red Blood Cells 0.0 % Sodium Level 141 mmol/L (136-145) Potassium Level 4.2 mmol/L (3.5-5.1) Chloride Level 106 mmol/L (98-107) Carbon Dioxide Level 28 mmol/L (20-31) Anion Gap 7 (5-15) Blood Urea Nitrogen 13 mg/dL (9-23) Creatinine 0.70 mg/dL (0.550-1.02) Glomerular Filtration Rate Calc 102 mL/min (>90) BUN/Creatinine Ratio 18.6 (10.0-20.0) Serum Glucose 103 mg/dL (74-106) Calcium Level 9.5 mg/dL (8.7-10.4) Total Bilirubin 0.7 mg/dL (0.2-1.0) Aspartate Amino Transferase (AST) 15 U/L (13-40) Alanine Aminotransferase (ALT) 14 U/L (7-40) Alkaline Phosphatase 73 U/L (46-116) Total Protein 6.6 g/dL (5.7-8.2) Albumin 4.1 g/dL (3.2-4.8) Urine Color Light-yellow (Yellow) Urine Clarity Turbid (Clear) Urine pH 7.0 (5.0-9.0) Urine Specific [place] 1.019 (1.001-1.035) Urine Protein Negative (Negative) Urine Ketones Negative (Negative) Urine Blood Negative /uL (Negative) Urine Nitrite Negative (Negative) Urine Bilirubin Negative (Negative) Urine Urobilinogen Normal mg/dL (Negative) Urine Leukocyte Esterase Negative /uL (Negative) Urine RBC <1 /hpf (0 - 4) Urine Microscopic WBC 1 /HPF (0-5) Urine Squamous Epithelial Cells Few /hpf (<5) Urine Calcium Oxalate Crystals Few (None Seen) Urine Amorphous Crystals Few /hpf (None Seen) Urine Bacteria None seen /hpf (None Seen) Urine Glucose Normal mg/dL (Normal) Prothrombin Time 10.3 sec (9.3-11.8) Prothrombin Time INR 0.97 (0.9-1.15) Activated Partial Thromboplast Time 25.8 SEC (24.5-34.5) Other Laboratory Tests 12/05/24 04:24 12/04/24 06:07 Brief Hx & Hospital Course: see dictated note Condition at Discharge: Good Final Diagnosis/Problems List left ankle fracture Discharge Disposition: Home Discharge Instruct/Medications Diet: Cardiac 2g Na,low cholest Activity: No Restrictions, As Tolerated Activity comment: non weight bearing left leg Follow Up/Referral: schedule appt with dr Gallagher in 2 wks Medications: resume home meds script to pharmacy Discharge Statement: "Patient was advised to return to the ER or call 911 if any headaches, dizziness, shortness of breath, chest pain, abdominal pain, bleeding, fevers, or worsening of medical condition. Patient was counseled about treatment plan, medications, possible side effects, patientverbalized understanding. All questions were answered to the best of my ability. This discharge took greater then 30 minutes in planning, reviewing documentation, counseling the patient, and discussing with other team members." ASSESSMENT ASSESSMENT Assessment left ankle fracture Date of Service: Dec 06, 2024 Billing Provider: DOLORES MOORE MD Common Visit Codes: 54327-GEH/OBS DISCH DAY >30min DOLORES MOORE MD Dec 06, 2024 11:51
--- NOTE | 2024-12-06 12:17 | DVHDS ---
DATE OF DISCHARGE: 12/06/2024 HISTORY OF PRESENT ILLNESS: The patient is a 54-year-old lady who came with history of pain in the left ankle after trauma. The patient has history of hypertension, hyperlipidemia. HOSPITAL COURSE: The patient had x-ray of the left ankle that showed a spiral fracture of the distal fibula with a chip fracture of the medial malleolus. The patient was seen in orthopedic consult by Dr. Tompkins. The patient underwent surgery on the left ankle on 12/04/2024. The patient will now be discharged home to be nonweightbearing as well as to be on Sharon p.r.n. for pain. She will follow up with Orthopedics in the next two weeks. FINAL DIAGNOSES: Therefore, * Left ankle fracture, status post surgery. * History of hypertension. * Hyperlipidemia. Time spent in discharge planning and review of plan with the patient, nursing and family welfare social work professor was 39 minutes. MD SHA Estrada/ERIKA TID: [id number] RECEIPT: [id number]
== END 2024-12-06 18:44 | disposition home or self-care (01) | DRG 313 ==
LOC: ER 13:46 → OVERFLOW 18:59 → WEST WING 21:26
PROVIDERS: ADMIT Internal Medicine; ATTEND Internal Medicine
PROC: 0QSK04Z Reposition Left Fibula with Internal Fixation Device, Open Approach (ICD-10-PCS; principal; 2024-12-04 11:45)
DX: S82.62XA Displaced fracture of lateral malleolus of left fibula, initial encounter for closed fracture (principal); E78.5 Hyperlipidemia, unspecified; I10 Essential (primary) hypertension; S82.442A Displaced spiral fracture of shaft of left fibula, initial encounter for closed fracture; S82.842A Displaced bimalleolar fracture of left lower leg, initial encounter for closed fracture; S93.432A Sprain of tibiofibular ligament of left ankle, initial encounter; S93.422A Sprain of deltoid ligament of left ankle, initial encounter; Z59.00 Homelessness unspecified; W18.30XA Fall on same level, unspecified, initial encounter; Y93.89 Activity, other specified; Y92.89 Other specified places as the place of occurrence of the external cause; Y99.8 Other external cause status
CPT/HCPCS: 36415; 71045; 73590; 73600; 73610; 76000; 80048; 80053; 81001; 85025; 85610; 85730; 86850; 86900; 86901; 93005; 97110; 97116; 97163; 97530; G0378; J0131; J1100; J1885; J2003; J2405; J2704

== ENCOUNTER 2024-12-12 14:16 | Emergency (ER) | payer MEDICAID ==
[~2024-12-12] VITALS: Ht 152.4 cm; Wt 66.0 kg
[~2024-12-12 14:16] MED LIST: CEPH500C PO; HYDR-4902 PO
--- NOTE | 2024-12-12 15:11 | ED.PDOC ---
Musculoskeletal HPI Comments 54-year-old female presents for medication refill S/P fracture. Chief Complaint: Lower Extremity Time Seen by MD: 14:48 Primary Care Provider: NONE Reviewed Notes: Nurses Notes, Medications, Allergies Allergies: Coded Allergies: NO KNOWN ALLERGIES (Unverified , 06/18/24) Home Meds Active Scripts Hydrocodone-Acetaminophen (Hydrocodone Bitartrate/AC 5-325 mg) 1 Tab Tab, 1 TAB PO TID PRN, #24 TAB Prov:GUILLERMO MASTERSP 12/13/24 Cephalexin Monohydrate (Cephalexin) 500 Mg Cap, 1 CAP PO QID for 5 Days, #20 CAP Prov:STACY ALMENDAREZ PAC 12/05/24 Hydrocodone-Acetaminophen (Hydrocodone Bitartrate/AC 5-325 mg) 1 Tab Tab, 1 TAB PO Q8HP PRN for 5 Days, #30 TAB Prov:STACY ALMENDAREZ PAC 12/05/24 Information Source: Patient Mode of Arrival: Ambulatory Past Medical History PAST MEDICAL HISTORY: Anemia, High Lipids, HTN Surgical History: Tonsillectomy 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: Denies all FLIGHT TEST SUPERVISOR Hx Family History Family History: Reviewed,noncontributory to illness, Unknown Social History Smoker: Non-Smoker Alcohol: Rarely Drugs: Denies Drug Use Lives In: Home All Other Systems: Reviewed and Negative (Per HPI) Physical Exam General Appearance: No Apparent Distress, Normal HEENT: Normal ENT Inspection, Pharynx Normal, TMs Normal Neck: Full Range of Motion, Non-Tender, Normal, Normal Inspection Respiratory: Chest Non-Tender, Lungs Clear, No Accessory Muscle Use, No Respiratory Distress, Normal Breath Sounds Cardiovascular: No Murmur, No Gallop, Regular Rate/Rhythm Breast Exam: Deferred Gastrointestinal: No Organomegaly, Non Tender, No Pulsatile Mass, Normal Bowel Sounds, Soft Genitalia: Deferred Pelvic: Deferred Rectal: Deferred Extremities: No calf tenderness, Normal capillary refill, Normal inspection, Normal range of motion, Non-tender, No pedal edema Musculoskeletal : Apperance: Normal Neurologic: Alert, No Motor Deficits, Normal Affect, Normal Mood, No Sensory Deficits Cerebellar Function: Normal Reflexes: Normal Skin: Dry, Normal Color, Warm Lymphatic: No Adenopathy Was a procedure done? Was a procedure done?: No Differential Diagnosis EXT Differential Diagnosis: Other X-Ray, Labs, Meds, VS Vital Signs Date Time Temp Pulse Resp B/P (MAP) Pulse Ox O2 Delivery O2 Flow Rate FiO2 12/12/24 15:12 97.7 92 18 137/92 (107) 96 97.7 12/12/24 15:12 92 18 96 Room Air 12/12/24 14:30 97.7 92 18 137/92 (107) 96 97.7 Time of 1ST Reevaluation: 13:00 Reevaluation 1ST: Improved Patient Education/Counseling: Diagnosis, Treatment Family Education/Counseling: Diagnosis, Treatment Departure 1 Departure Time of Disposition: 15:11 Impression: Primary Impression: Medicine refill Disposition: 01 HOME / SELF CARE / HOMELESS Condition: Stable Critical Care Note Critical Care Time?: No Stability Stability form required: No Heart Score Heart Score: Heart Score Response (Comments) Value History N/A 0 EKG N/A 0 Age N/A 0 Risk Factors N/A 0 Troponin N/A 0 Total 0 JEREMIAH CUELLAR PORTUGUESE TUTOR Dec 12, 2024 15:11
[2024-12-12 15:12] VITALS: BP 137/92; PULSE 92; RESP 18; TEMP 97.7; O2SAT 96
[2024-12-13] MEDS ORDERED: HYDR-4902 PO (17:10)
== END 2024-12-12 15:15 | disposition home or self-care (01) ==
LOC: ER 14:16
DX: I10 Essential (primary) hypertension (principal); Z76.0 Encounter for issue of repeat prescription; E78.5 Hyperlipidemia, unspecified; D64.9 Anemia, unspecified; Z90.89 Acquired absence of other organs; Z79.899 Other long term (current) drug therapy
CPT/HCPCS: 96374

== ENCOUNTER 2024-12-13 16:17 | Emergency (ER) | payer MEDICAID ==
[~2024-12-13] VITALS: Ht 162.6 cm; Wt 66.0 kg
--- NOTE | 2024-12-13 16:57 | ED.PDOC ---
History of Present Illness HPI Comments 54 year old female presents to the ED with a chief complaint of LT lower leg pain onset few days. Patient was seen [facility] ED on 12/02/24 due to fall, was diagnosed with a fracture, was admitted, had surgery on 12/04/24 and was discharged home on 12/06/24. Patient was compliant with antibiotics and pain medication, [place], finished medication. Follow up appointment is on 12/18/24, ran out of pain medication. PMHx HTN, HLD, anemia. Denies chest pain, shortness of breath, diarrhea, nausea, vomiting, dizziness. No other symptoms or modifying factors present at this time. Chief Complaint: Lower Extremity Time Seen by MD: 16:45 Primary Care Provider: NONE Reviewed Notes: Nurses Notes, Medications, Allergies Allergies: Coded Allergies: NO KNOWN ALLERGIES (Unverified , 06/18/24) Home Meds Active Scripts Cephalexin Monohydrate (Cephalexin) 500 Mg Cap, 1 CAP PO QID for 5 Days, #20 CAP Prov:STACY ALMENDAREZ PAC 12/05/24 Hydrocodone-Acetaminophen (Hydrocodone Bitartrate/AC 5-325 mg) 1 Tab Tab, 1 TAB PO Q8HP PRN for 5 Days, #30 TAB Prov:STACY ALMENDAREZ PAC 12/05/24 Information Source: Patient Mode of Arrival: Ambulatory Severity: Moderate Timing: Hours Duration: Since onset Prehospital treatment: None Past Medical History PAST MEDICAL HISTORY: Anemia, High Lipids, HTN Surgical History: Tonsillectomy Surgical History (Other): LT lower leg surgery DIRECTOR MARKETING History: Denies all DIRECTOR MARKETING Hx Family History Family History: Reviewed,noncontributory to illness, Unknown Social History Smoker: Non-Smoker Alcohol: Rarely Drugs: Denies Drug Use Lives In: Home Constitutional: denies: chills, diaphoresis, fatigue, fever, malaise, sweats, weakness, others EENTM: denies: blurred vision, double vision, ear bleeding, ear discharge, ear drainage, ear pain, ear ringing, eye pain, eye redness, hearing loss, mouth pain, mouth swelling, nasal discharge, nose bleeding, nose congestion, nose pain, photophobia, tearing, throat pain, throat swelling, voice changes, others Respiratory: denies: cough, hemoptysis, orthopnea, SOB at rest, shortness of breath, SOB with excertion, stridor, wheezing, others Cardiovascular: denies: chest pain, dizzy spells, diaphoresis, Dyspnea on exertion, edema, irregular heart beat, left arm pain, lightheadedness, palpitations, PND, syncope, others Gastrointestinal: denies: abdomen distended, abdominal pain, blood streaked bowels, constipated, diarrhea, dysphagia, difficulty swallowing, hematemesis, melena, nausea, poor appetite, poor fluid intake, rectal bleeding, rectal pain, vomiting, others Genitourinary: denies: abnormal vagina bleeding, burning, dyspareunia, dysuria, flank pain, frequency, hematuria, incontinence, pain, , vagina discharge, urgency, others Neurological: denies: dizziness, fainting, headache, left sided numbness, left sided weakness, numbness, paresthesia, pre-existing deficit, right sided numbness, right sided weakness, seizure, speech problems, tingling, tremors, weakness, others Musculoskeletal: reports: others (LT lower leg pain); denies: back pain, gout, joint pain, joint swelling, muscle pain, muscle stiffness, neck pain Integumetry: denies: bruises, change in color, change in hair/nails, dryness, laceration, lesions, lumps, rash, wounds, others Allergic/Immunocompromised: denies: Difficulty Healing, Frequent Infections, Hives, Itching, others Hematologic/Lymphatic: denies: anemia, blood clots, easy bleeding, easy bruising, swollen glands, others Endocrine: denies: excessive hunger, excessive sweating, excessive thirst, excessive urination, flushing, intolerance to cold, intolerance to heat, unexplained weight gain, unexplained weight loss, others Psychiatric: denies: anxiety, bipolar disorder, depression, hopeless, panic dis order, schizophrenia, sleepless, suicidal, others All Other Systems: Reviewed and Negative Physical Exam General Appearance: No Apparent Distress, Normal HEENT: Normal ENT Inspection, Pharynx Normal, TMs Normal Neck: Full Range of Motion, Non-Tender, Normal, Normal Inspection Respiratory: Chest Non-Tender, Lungs Clear, No Accessory Muscle Use, No Respiratory Distress, Normal Breath Sounds Cardiovascular: No Edema, No JVD, No Murmur, No Gallop, Normal Peripheral Pulses, Regular Rate/Rhythm Breast Exam: Deferred Gastrointestinal: No Organomegaly, Non Tender, No Pulsatile Mass, Normal Bowel Sounds, Soft Genitalia: Deferred Pelvic: Deferred Rectal: Deferred Extremities: No calf tenderness, Normal capillary refill, Other (distal CMS intact) Musculoskeletal : Apperance: Normal Neurologic: Alert, hairspring setter II-XII nml as Tested, No Motor Deficits, Normal Affect, Normal Mood, No Sensory Deficits Cerebellar Function: Normal Reflexes: Normal Skin: Dry, Normal Color, Warm Lymphatic: No Adenopathy Was a procedure done? Was a procedure done?: No Differential Dx Considerations may include: Medication refill X-Ray, Labs, Meds, VS Vital Signs Date Time Temp Pulse Resp B/P (MAP) Pulse Ox O2 Delivery O2 Flow Rate FiO2 12/13/24 16:40 97.5 88 22 116/78 (91) 95 97.5 X-Ray, Labs, Meds, VS Comment Imaging: X-rays and CT scans were reviewed and interpreted by this provider, imaging shows no fractures and no pathological disease. Pending radiology review. Laboratory: Labs reviewed and interpreted by this provider. No significant abnormalities noted. Patient has prior medical visits reviewed. Med reconciliation performed Vital signs reviewed Time of 1ST Reevaluation: 17:15 Reevaluation 1ST: Unchanged Patient Education/Counseling: Diagnosis, Treatment, Prognosis, Need For Follow Up (Make sure to continue with follow up appointment on 12/18.) Family Education/Counseling: No Family Present Departure 1 Departure Time of Disposition: 17:09 Impression: Primary Impression: Left fibular fracture Qualified Codes: S82.452D - Displaced comminuted fracture of shaft of left fibula, subsequent encounter for closed fracture with routine healing Disposition: HOME / SELF CARE / HOMELESS Condition: Fair e-Prescriptions Hydrocodone-Acetaminophen (Hydrocodone Bitartrate/AC 5-325 mg) 1 Tab Tab 1 TAB PO TID PRN, #24 TAB Prov: GUILLERMO MASTERS 12/13/24 Discharged With: Self Critical Care Note Critical Care Time?: No Stability Stability form required: No I personally scribed for GUILLERMO MASTERS ([email or web address]) on 12/13/24 at 16:57. Electronically submitted by Kori Li ([email or web address]). GUILLERMO MASTERS Dec 13, 2024 16:57
[2024-12-13] MEDS ORDERED: HYDR-4902 PO (17:10)
[2024-12-13 17:43] VITALS: BP 131/92; PULSE 79; RESP 16; TEMP 98.7; O2SAT 97
== END 2024-12-13 17:48 | disposition home or self-care (01) ==
LOC: ER 16:17
DX: S82.402D Unspecified fracture of shaft of left fibula, subsequent encounter for closed fracture with routine healing (principal); W19.XXXD Unspecified fall, subsequent encounter; E78.5 Hyperlipidemia, unspecified; I10 Essential (primary) hypertension